=== PATIENT | male | born 1990 | race Caucasian/White ===

== ENCOUNTER 2023-09-02 06:15 | Emergency (ER) | payer OTHER ==
[~2023-09-02] VITALS: Ht 185.4 cm; Wt 79.5 kg
[2023-09-02] MEDS ORDERED: KETOROLAC TROMETHAMINE 30 MG/ML VIAL IVP ONE (06:30)
[2023-09-02] MEDS ORDERED: SODIUM CHLORIDE 0.9% 1,000 ML IV ONE (06:30)
[2023-09-02] MEDS ORDERED: MORPHINE SULFATE 4 MG/ML SYRINGE IVP ONE (06:30)
[2023-09-02] MEDS ORDERED: ONDANSETRON HCL 4 MG/2 ML VIAL IVP ONE (06:30)
[2023-09-02] MEDS ORDERED: PERTUSS(ACELL),DIPH,TET VAC/PF 0.5 ML SYRINGE IM. ONE (06:30)
[2023-09-02 06:36] VITALS: TEMP 98
[2023-09-02 07:49] LABS: BASOPHILS % (AUTO) 0.7 % (0.0-2.0); EOSINOPHILS % (AUTO) 0.2 % (1.0-6.0); HEMATOCRIT 40.1 % (41-53); HEMOGLOBIN 12.9 g/dL (13.5-17.5); LYMPHOCYTES # (AUTO) 1.2 K/uL (1.0-4.8); LYMPHOCYTES % (AUTO) 8.4 % (22.0-44.0); MEAN CORPUSCULAR HEMOGLOBIN 29.5 pg (26.0-34.0); MEAN CORPUSCULAR HGB CONC 32.2 G/dL (31.0-37.0); MEAN CORPUSCULAR VOLUME 92 fL (80-100); MONOCYTES # (AUTO) 0.8 K/uL (0.1-1.0); NEUTROPHILS # (AUTO) 11.8 K/uL (1.8-7.7); NEUTROPHILS % (AUTO) 84.7 % (40.0-70.0); PLATELET COUNT (AUTO) 417 K/uL (150-450); RED BLOOD CELL COUNT(AUTO) 4.38 MIL/uL (4.50-5.90); RED CELL DISTRIBUTION WIDTH 16.2 % (11.5-14.5); WHITE BLOOD COUNT (AUTO) 13.9 K/uL (4.5-11.0)
[2023-09-02 07:59] LABS: ANION GAP 9 mmol/L (8-16); CALCIUM, TOTAL 9.2 mg/dL (8.8-10.5); CARBON DIOXIDE 27 mmol/L (22-29); CHLORIDE 105 mmol/L (98-107); GLOMERULAR FILTR. RATE CALC > 60 mL/min (>60); GLUCOSE,RANDOM 91 mg/dL (70-110); POTASSIUM 3.8 mmol/L (3.5-5.1); SODIUM SERUM 141 mmol/L (136-145); UREA NITROGEN, BLOOD 11 mg/dL (7-18)
[2023-09-02 08:02] LABS: INR 1.1 (0.9-1.1); PROTHROMBIN TIME 11.5 SEC (9.4-11.6)
[2023-09-02 08:04] LABS: ALANINE AMINOTRANSFERASE 27 U/L (12-78); ALBUMIN 3.4 g/dL (3.4-5.0); ALKALINE PHOSPHATASE 90 U/L (46-116); ASPARTATE AMINOTRANSFERASE 35 U/L (15-37); BILIRUBIN,TOTAL 0.4 mg/dL (0.1-1.0); TOTAL PROTEIN, SERUM 6.7 g/dL (6.4-8.2)
[2023-09-02 08:50] VITALS: BP 137/79; PULSE 76; RESP 18
[2023-09-02] MEDS ORDERED: IBUP-1492 PO (09:03)
== END 2023-09-02 09:43 | disposition home or self-care (01) ==
LOC: EMS 06:15
DX: S82.831A Other fracture of upper and lower end of right fibula, initial encounter for closed fracture (principal); S90.511A Abrasion, right ankle, initial encounter; S30.811A Abrasion of abdominal wall, initial encounter; W17.89XA Other fall from one level to another, initial encounter; Y93.89 Activity, other specified; Y92.89 Other specified places as the place of occurrence of the external cause; Y99.8 Other external cause status
CPT/HCPCS: 99285; 74176; 96374; 29515; 71045; 96375; 96361; 80053; 85025; 85610; 36415; 73610 ×2; 73620 ×2; 90715; 90471; J1885; J2270; J2405; J7030

== ENCOUNTER 2024-07-17 04:22 | Emergency (ER) | payer MEDICAID, OTHER ==
[~2024-07-17] VITALS: Ht 182.9 cm; Wt 68.2 kg
[~2024-07-17 04:22] MED LIST: IBUP-1492 PO
[2024-07-17 04:44] VITALS: BP 117/82; PULSE 80; RESP 20; TEMP 98.7; O2SAT 99
[2024-07-17] MEDS: IBUPROFEN 600 MG TABLET PO ONE (06:06)
== END 2024-07-17 06:15 | disposition home or self-care (01) ==
LOC: EMS 04:23
DX: M25.571 Pain in right ankle and joints of right foot (principal)
CPT/HCPCS: 99283